=== PATIENT | female | born 1990 | race Caucasian/White ===

== ENCOUNTER 2020-03-19 10:16 | Outpatient (CLI) | payer OTHER, SELFPAY ==
--- NOTE | 2020-03-19 11:30 | NEURO_ITS ---
Patient Number: [id number] Impression: # Complains of numbness of right hand. # Right Carpal Tunnel Syndrome. # No ulnar neuropathy. # Normal needle/EMG exam. Nerve Conduction Studies Anti Sensory Summary Table Stim Site NR Peak (ms) P-T Amp (?V) Site1 Site2 Delta-P (ms) Dist (cm) Jun (m/s) Left Median Anti Sensory (2-3nd Digit) Wrist 3.1 55.5 Wrist 2-3nd Digit 3.1 14.0 45 Wrist 3.1 78.0 Wrist 2-3nd Digit 3.1 14.0 45 Right Median Anti Sensory (2-3nd Digit) Wrist 3.5 54.3 Wrist 2-3nd Digit 3.5 14.0 40 Wrist 3.5 40.6 Wrist 2-3nd Digit 3.5 14.0 40 Left Radial Anti Sensory (Base 1st Digit) Wrist 2.1 25.6 Wrist Base 1st Digit 2.1 0.0 Right Radial Anti Sensory (Base 1st Digit) Wrist 2.4 19.3 Wrist Base 1st Digit 2.4 0.0 Left Ulnar Anti Sensory (5th Digit) Wrist 2.5 67.6 Wrist 5th Digit 2.5 14.0 56 Right Ulnar Anti Sensory (5th Digit) Wrist 2.1 53.1 Wrist 5th Digit 2.1 14.0 67 Motor Summary Table Stim Site NR Onset (ms) O-P Amp (mV) Site1 Site2 Delta-0 (ms) Dist (cm) Jun (m/s) Left Median Motor (Abd Poll Brev) Wrist 3.4 2.4 Elbow Wrist 4.4 26.0 59 Elbow 7.8 3.2 Right Median Motor (Abd Poll Brev) Wrist 4.0 3.0 Elbow Wrist 5.1 28.0 55 Elbow 9.1 1.4 Left Ulnar Motor (Abd Dig Minimi) Wrist 2.7 4.5 A Elbow Wrist 5.0 30.0 60 A Elbow 7.7 3.4 Right Ulnar Motor (Abd Dig Minimi) Wrist 2.3 5.1 A Elbow Wrist 4.8 28.0 58 A Elbow 7.1 4.5 F Wave Studies NR F-Lat (ms) L-R F-Lat (ms) Left Median (Mrkrs) (Abd Poll Brev) 25.26 0.52 Right Median (Mrkrs) (Abd Poll Brev) 25.78 0.52 Left Ulnar (Mrkrs) (Abd Dig Min) 25.03 0.24 Right Ulnar (Mrkrs) (Abd Dig Min) 25.27 0.24 EMG Side Muscle Nerve Root Ins Act Fibs Amp Dur Recrt Comment Right 1stDorInt Ulnar C8-T1 Nml Nml Nml Nml Nml Right Ext Indicis Radial (Post Int) C7-8 Nml Nml Nml Nml Nml Right Ext Digitorum Radial (Post Int) C7-8 Nml Nml Nml Nml Nml Right BrachioRad Radial C5-6 Nml Nml Nml Nml Nml Right PronatorTeres Median C6-7 Nml Nml Nml Nml Nml Right Abd Poll Brev Median C8-T1 Nml Nml Nml Nml Nml Left 1stDorInt Ulnar C8-T1 Nml Nml Nml Nml Nml Left Ext Indicis Radial (Post Int) C7-8 Nml Nml Nml Nml Nml Left Ext Digitorum Radial (Post Int) C7-8 Nml Nml Nml Nml Nml Left BrachioRad Radial C5-6 Nml Nml Nml Nml Nml Left PronatorTeres Median C6-7 Nml Nml Nml Nml Nml Left Abd Poll Brev Median C8-T1 Nml Nml Nml Nml Nml MTDD
== END 2020-03-19 10:17 | disposition home or self-care (01) ==
PROVIDERS: PCP Internal Medicine; Visit Provider Internal Medicine
DX: G56.01 Carpal tunnel syndrome, right upper limb (principal)
CPT/HCPCS: 95886; 95911

== ENCOUNTER → 2021-07-25 00:06 | Outpatient (CLI) | payer OTHER, SELFPAY ==
[2021-07-25 18:06] LABS: SARS-CoV-2 RNA PCR Negative
== END ==
PROVIDERS: PCP Nurse Practitioner Family; Visit Provider Plastic Surgery
DX: Z01.812 Encounter for preprocedural laboratory examination (principal); Z20.822 Contact with and (suspected) exposure to COVID-19
CPT/HCPCS: C9803; U0003; U0005

== ENCOUNTER 2021-07-29 01:20 | Day surgery (SDC) | payer OTHER, SELFPAY ==
[2021-07-23 08:21] VITALS: BMI 27.0
[2021-07-29] MEDS: LACTATED RINGERS 1,000 ML 30 ML IV CONT (06:35)
[2021-07-29 06:38] VITALS: BP 108/75; PULSE 63; TEMP 36.4; O2SAT 100
--- NOTE | 2021-07-29 07:06 | P.PNAN_ITS ---
Anes - Initial Pre Proc Eval Procedure: Operation Date: 07/29/21 07:30 Proposed Procedures p Right Open Carpal Tunnel Release, - Yobany Johnson MD s Right Ulnar Neuroplasty at Elbow - Yobany Johnson MD Date/Time: 07/29/21 07:06 Surgeon: Yobany Johnson MD Pre Op Diagnosis: right carpal and cubital tunnel syndrome Patient Data Age: 31 Gender: F Height: 1.64 m Weight: 72.3 kg Last Vital Signs Temp 97.6 F 07/29/21 06:38 Pulse 63 07/29/21 06:38 BP 108/75 07/29/21 06:38 Pulse Ox 100 07/29/21 06:38 Allergies Allergy/AdvReac Type Severity Reaction Status Date / Time No Known Allergies Allergy Verified 07/29/21 06:23 Home Medications Medication Instructions Recorded Confirmed Type ergocalciferol (vitamin D2) 1,250 1,250 mcg PO WEEKLY 90 Days #13 cap 10/28/20 07/23/21 Rx mcg (50,000 unit) capsule clonazepam 0.125 mg PO DAILY PRN 07/23/21 07/23/21 History pregabalin 150 mg PO BID 07/23/21 07/23/21 History Patient hx anesthesia problems: none Family hx anesthesia problems: none Results Review: All pre-operative results and documents have been reviewed as part of the pre-operative evaluation. [facility] Past Medical History Medical History (Updated 06/04/21 @ 12:07 by Valeria Galicia NP) BMI 27.0-27.9,adult Encounter to establish care Epidermal inclusion cyst Family history of breast cancer Fatigue Screening for viral disease Seasonal allergies Sleep disorder Tarsal tunnel syndrome Urinary frequency Surgical History Surgical History H/O LEEP (~2019) Family History Family History Mother Alcoholism Asthma Breast cancer Grandparent Brain cancer Kidney malignancy Lung cancer Other Diabetes mellitus Family history of chronic obstructive pulmonary disease Family history of mental disorder Social History Social History Smoking packs per day: 1 Smoking cigarettes per day: 20.0 Years smoked: 8 Smoking pack-years: 8.00 Smoking status: Former smoker Second hand tobacco smoke exposure: No Smoking end date: 10/17/17 Alcohol intake: current Alcohol use details: ONCE A MONTH Substance use: never Substance use type: does not use Living arrangements: with family Spiritual care concerns: No Anes - Eval Final PreProcedure Day of Procedure 07/29/21 07:06 Patient weight: normal Heart: regular rate and rhythm Lungs: clear to auscultation Airway: Mallampati scale class II Neurological: alert and oriented Last oral intake: >/= 8 hours ASA classification: II Emergent: no Anesthetic plan: proceed Anesthesia type and monitoring: general GIVS and standard monitoring Results Review: All pre-operative results and documents have been reviewed as part of the pre-operative evaluation. Informed Consent: The patient's anesthetic plan and its attendant risks and benefits were discussed with the patient/family/POA. Questions were solicited and answers provided to the satisfaction of the patient/family/POA.
--- NOTE | 2021-07-29 07:19 | WPDHPUPDATE1 ---
History and Physical Update Update Date/Time: 07/29/21 07:19 History and Physical has been reviewed, including an updated exam of the patient. There are NO changes in the patient's condition. Risks, benefits, and alternatives have been discussed and questions answered. Patient agrees to proceed with procedure.
[2021-07-29] MEDS: LIDO 1%/EPINEPHRINE/PF 1:200,000 30 ML VIAL INFILTRATE (07:44)
[2021-07-29 08:35] VITALS: BP 104/70; PULSE 84; RESP 14; O2SAT 99
--- NOTE | 2021-07-29 08:39 | P.OP_ITS ---
Procedure Note - Detailed Date of Procedure 07/29/21 Pre-op Diagnosis right carpal and cubital tunnel syndrome Post-op Diagnosis same Procedure Performed Right open carpal tunnel release and right ulnar neuroplasty at the elbow with anterior subcutaneous transposition Surgeon Yobany Johnson MD Sal[facility]roll [facility] MAC Description of Procedure The 2 sites were marked on the patient's upper extremity in holding area. She was taken to the operating room and placed supine on the operating table. A time-out was held and confirmed. She was given IV sedation and the extremity was prepped and draped in usual fashion. The 2 sites were marked for incisions and locally infiltrated with 1% lidocaine with epinephrine. The extremity was exsanguinated and the tourniquet inflated to 250 mmHg. The incision was made 1st in the palm and blunt dissection revealed the palmar aponeurosis. The aponeurosis and the transverse carpal ligament were incised with a 15. Blade opening the canal. Under 3 point retraction the ligament was divided distally and proximally to completely release it. No unusual anatomy was noted. The skin was closed with interrupted 5 0 nylon suture. Attention was turned to the elbow which was of flexed the arm was externally rotated the elbow was supported on folded towels. The incision was made as marked. Dissection through the subcutaneous tissue revealed a fairly robust triceps and anteriorly subluxed ulnar nerve. The fibrotic sheath material was incised exposing the nerve and this was dissected proximally with release of the intermuscular septum. And distally by releasing Ayala ligament and the flexor muscle fascia over the nerve. The of the nerve readily transposed itself well above the medial epicondyle. A pocket was made in the subcutaneous tissue. Nerve was released sufficiently to transpose without kinking. A small fascial flap was elevated off the medial epicondyle and the the skin flap pulled over the nerve and repair was made 2 sites to retain that position. This did not impinge upon the nerve. The skin was closed with intradermal 3-0 Monocryl suture multiple sites and a running intradermal 3-0 Monocryl to close the skin. The usual bandage was were applied the tourniquet was released. She is discharged from the operating room stable condition. She has a prescription for hydrocodone 5/325 number 7 and instructions in wound care and follow-up Estimated Blood Loss 2 Tourniquet Time 47 Drains No Packing No Pathology none sent Complications No immediate complications Condition stable Disposition same day
[2021-07-29 09:05] VITALS: BP 108/74; PULSE 68; RESP 20
[2021-07-29] MEDS: oxyCODONE HCL (*CRX) 5 MG TAB IR PO (09:11)
[2021-07-29] MEDS: fentaNYL CITRATE INJ (*CRX) 100 MCG/2 ML VIAL 25 MCG IV PUSH ×2 (09:27→09:31)
[2021-07-29 09:35] VITALS: BP 107/70; PULSE 84; RESP 20
== END 2021-07-29 09:45 | disposition home or self-care (01) ==
PROVIDERS: PCP Nurse Practitioner Family; Visit Provider Plastic Surgery
PROC: (CPT 64721; principal; 2021-07-29 07:30)
PROC: (CPT 64721; 2021-07-29 07:30)
DX: G56.01 Carpal tunnel syndrome, right upper limb (principal); G56.21 Lesion of ulnar nerve, right upper limb; Z87.891 Personal history of nicotine dependence
CPT/HCPCS: 64721; 64718; A9270; C9803; J2250; J2704; J3010; J7120; U0003; U0005

== ENCOUNTER → 2023-12-21 13:28 | Outpatient (CLI) | payer OTHER, SELFPAY ==
--- NOTE | ~2023-12-21 | XR_ITS ---
EXAMINATION: XR shoulder RT min 2V DATE: 12/21/2023 14:05 INDICATION: Right shoulder pain. TECHNIQUE: 4 views of right shoulder were obtained. COMPARISON: None. FINDINGS: Bone alignment is normal. No fracture. Joint spaces are normal. IMPRESSION: 1. Normal right shoulder. Reviewed, dictated and finalized at location E. F DEVELOPER IMPRESSION: 1. Normal right shoulder.
--- NOTE | ~2023-12-21 | XR_ITS ---
EXAMINATION: XR_[id number]_CR DATE: 12/21/2023 14:05 INDICATION: Neck pain. TECHNIQUE: 6 views of cervical spine were obtained. COMPARISON: None. FINDINGS: There is 3 degrees dextrocurvature of cervical spine. Vertebral body heights and interverte bral disc heights are normal. There is multilevel mild facet joint osteoarthritis. No neural foramina l stenosis or central canal stenosis. No prevertebral soft tissue swelling. IMPRESSION: 1. Mild cervical facet joint osteoarthritis Reviewed, dictated and finalized at location E. DYE HAND
== END ==
PROVIDERS: PCP Family Medicine; Visit Provider Nurse Practitioner Family
DX: M47.892 Other spondylosis, cervical region (principal); M25.511 Pain in right shoulder
CPT/HCPCS: 72040; 73030

== ENCOUNTER 2024-02-12 10:30 | Outpatient (CLI) | payer OTHER, SELFPAY ==
--- NOTE | ~2024-02-12 | MR_ITS ---
EXAMINATION: MR shoulder RT wo con DATE: 02/12/2024 11:21 INDICATION: Right shoulder pain. TECHNIQUE: Magnetic resonance imaging (MRI) of the right shoulder was performed without intravenous c ontrast. Sequences included axial PD-weighted FS FSE, coronal oblique PD-weighted FS FSE and T2-weigh olu FS FSE, and sagittal oblique T2-weighted FS FSE and T1-weighted FSE. COMPARISON: None. FINDINGS: Coracoacromial arch: The acromion undersurface is flat in morphology (type I). The acromioclavicular joint is normal. Ther e is mild subacromial/subdeltoid bursitis. Rotator cuff: There is mild supraspinatus tendinopathy. Infraspinatus, teres minor, and subscapular tendons are nor mal. Biceps tendon and glenoid labrum: The biceps tendon is in the superior. Intra-articular biceps tendon is normal. The glenoid labrum is normal. Fluid: There is no glenohumeral joint effusion. Bones/cartilage: The glenoid cartilage is normal. Humeral head cartilage is normal. IMPRESSION: 1. Mild supraspinatus tendinopathy. No tear. 2. Mild subacromial/subdeltoid bursitis. Reviewed, dictated and finalized at location E.
== END 2024-02-12 10:31 | disposition home or self-care (01) ==
LOC: ANHIMG 10:30
PROVIDERS: PCP Nurse Practitioner Family; Visit Provider Nurse Practitioner Family
DX: M75.51 Bursitis of right shoulder (principal)
CPT/HCPCS: 73221

== ENCOUNTER 2024-02-29 07:03 | Outpatient (CLI) | payer OTHER, SELFPAY ==
--- NOTE | ~2024-02-29 | MR_ITS ---
MRI of the cervical spine Clinical History: Cervicalgia Technique: Axial T2-weighted and gradient images, and sagittal T1-weighted, T2-weighted, and STIR stephanie ges were acquired. Findings: There is straightening of the normal cervical lordosis. No fracture or subluxation seen. No suspicious bone marrow signal abnormality seen. At C2-C3, there is no disc bulge or herniation. No spinal canal stenosis, cord compression, or neural foraminal narrowing. At C3-C4, there is minimal disc bulge. No spinal canal stenosis, cord compression, or neural foramina l narrowing. At C4-C5, there is no disc bulge or herniation. No spinal canal stenosis, cord compression, or neural foraminal narrowing. At C5-C6, there is minimal disc osteophyte complex. No michael canal stenosis or cord compression. Bila teral neural foramina are preserved. At C6-C7, there is a central disc extrusion, minimally flattening the ventral cord. There is mild samantha ateral neural foraminal narrowing. No abnormal signal seen in the spinal cord. Paravertebral soft tissues are unremarkable. Impression: Central disc extrusion at C6-C7, with minimal flattening the ventral cord. Additional minimal degenerative changes, as above. Reviewed, dictated and finalized at location . Impression: Central disc extrusion at C6-C7, with minimal flattening the ventral cord. Additional minimal degenerative changes, as above.
== END 2024-02-29 07:04 ==
PROVIDERS: PCP Nurse Practitioner Family; Visit Provider Orthopaedic Surgery Sports Medicine
DX: M50.20 Other cervical disc displacement, unspecified cervical region (principal)
CPT/HCPCS: 72141